=== PATIENT | female | born 1935 | race Caucasian/White ===

== ENCOUNTER 2016-07-03 09:54 | Emergency (ER) | payer MEDICARE, OTHER ==
[~2016-07-03] VITALS: Ht 157.5 cm; Wt 44.7 kg
[~2016-07-03 09:54] MED LIST: BENAZEPRIL HYDR40 M1 PO; COL100 PO; FLEXERIL10 MG PO; HYDROCHLOROTHIA25 MG PO; LAC PO; MAC100 PO; METOPROLOL SUCC50 M2 PO; NORCO1 TA2 PO; PRINIVIL20 MG PO
[2016-07-03 14:20] VITALS: BP 106/52
== END 2016-07-03 14:20 | disposition home or self-care (01) ==
LOC: ED 09:54
DX: I16.0 Hypertensive urgency (principal); Z88.6 Allergy status to analgesic agent; Z79.899 Other long term (current) drug therapy

== ENCOUNTER 2016-11-06 12:41 | Emergency (ER) | payer MEDICARE, OTHER ==
[~2016-11-06] VITALS: Ht 147.3 cm; Wt 42.6 kg
[2016-11-06 15:19] VITALS: BP 154/62
[2016-11-06 15:22] LABS: UA SPECIFIC GRAVITY <=1.005 (1.005-1.035); microscopic required? YES; urine erythrocyte TRACE (NEGATIVE)
== END 2016-11-06 15:19 | disposition home or self-care (01) ==
LOC: ED 12:41
PROVIDERS: Emergency Medicine
DX: N39.0 Urinary tract infection, site not specified (principal); I10 Essential (primary) hypertension; R19.7 Diarrhea, unspecified

== ENCOUNTER 2018-03-17 14:51 | Emergency (ER) | payer OTHER ==
[~2018-03-17] VITALS: Ht 152.4 cm; Wt 46.7 kg
[2018-03-17 15:04] VITALS: Ht 152.4 cm; Wt 46.7 kg
[2018-03-17 16:56] LABS: BASOPHIL % 0.6 % (0-2); PLATELET COUNT 210 x10^3mcL (130-400)
[2018-03-17 17:00] LABS: CALCIUM 8.6 mg/dL (8.5-10.1); CARBON DIOXIDE 25.1 mmol/L (21-32); CHLORIDE SERUM 101 mmol/L (98-107); CREATININE SERUM 0.8 mg/dL (0.6-1.0); GLUCOSE SERUM 105 mg/dL (74-106); SODIUM SERUM 133 mmol/L (136-145)
[2018-03-17 17:05] LABS: ALBUMIN 3.6 g/dL (3.4-5.0); ALKALINE PHOSPHATASE 71 U/L (46-116); ALT/SGPT 19 U/L (14-59); AST/SGOT 13 U/L (15-37); BILIRUBIN TOTAL 0.2 mg/dL (0.20-1.00); TOTAL PROTEIN, SERUM 7.3 g/dL (6.4-8.2)
[2018-03-17 17:58] VITALS: BP 120/69
== END 2018-03-17 17:58 | disposition home or self-care (01) ==
LOC: ED 14:51
PROVIDERS: Emergency Medicine
DX: I10 Essential (primary) hypertension (principal); T46.5X5A Adverse effect of other antihypertensive drugs, initial encounter; Z88.6 Allergy status to analgesic agent; Y92.89 Other specified places as the place of occurrence of the external cause
CPT/HCPCS: 36415